=== PATIENT | female | born 1935 | race Asian ===

== ENCOUNTER 2016-02-16 15:44 | Observation (INO) | payer MEDICARE, OTHER ==
[~2016-02-16] VITALS: Ht 152.4 cm; Wt 39.0 kg
[2016-02-16] MEDS ORDERED: NAMENDA10 MG ORAL (16:16)
[2016-02-16] MEDS ORDERED: MELOXICAM15 MG PO (16:16)
[2016-02-16] MEDS ORDERED: RAMIPRIL5 MG ORAL (16:16)
[2016-02-16] MEDS ORDERED: METFORMIN HCL500 M1 ORAL (16:16)
[2016-02-16] MEDS ORDERED: ZOCOR20 M1 ORAL (16:18)
[2016-02-16] MEDS ORDERED: ASPIRIN81 MG ORAL (16:18)
[2016-02-16] MEDS ORDERED: OYSTER SHELL C500 MG PO (16:18)
[2016-02-16] MEDS ORDERED: CLOPIDOGREL75 MG ORAL (16:18)
[2016-02-16] MEDS ORDERED: DONEPEZIL HCL10 MG ORAL (16:18)
[2016-02-16 16:23] VITALS: BP 136/60
[2016-02-16 16:27] LABS: BASOPHILS % (AUTO) 0.9 % (0.0-2.0); LYMPHOCYTES % (AUTO) 23.3 % (20.0-45.0); MEAN CORPUSCULAR HGB CONC 32.6 G/DL (32.0-36.0); MEAN CORPUSCULAR VOLUME 95 FL (80-99); MEAN PLATELET VOLUME 7.5 FL (6.5-10.1); MONOCYTES % (AUTO) 5.9 % (1.0-10.0); NEUTROPHILS % (AUTO) 67.9 % (45.0-75.0); PLATELET COUNT 125 K/UL (150-450); RED BLOOD COUNT 3.93 M/UL (4.20-5.40); RED CELL DISTRIBUTION WIDTH 12.9 % (11.6-14.8)
[2016-02-16 16:33] LABS: PROTHROMBIN TIME 10.3 SEC (9.30-11.50)
[2016-02-16 16:42] LABS: ALANINE AMINOTRANSFERASE 7 U/L (3-33); ALBUMIN/GLOBULIN RATIO 1.3 (1.0-2.7); ANION GAP 13 (5-15); ASPARTATE AMINO TRANSFERASE 20 U/L (5-40); CALCIUM 9.9 mg/dL (8.6-10.2); CARBON DIOXIDE 26 mEQ/L (20-30); CHLORIDE 105 mEQ/L (98-107); CREATININE 0.9 mg/dL (0.5-0.9); HEMOLYSIS 22; SODIUM 144 mEQ/L (135-145); TOTAL PROTEIN 6.8 g/dL (6.6-8.7)
[2016-02-16 16:57] LABS: TROPONIN I < 0.30 ng/mL (<=0.30)
[2016-02-16 17:12] LABS: LIPASE 77 U/L (< 60)
--- NOTE | 2016-02-16 17:16 | Diagnostic Imaging Report ---
Indications: S. pain Technique: Portable AP chest Findings: Comparison: None Mild lung volume asymmetry, right greater than left. Small curvilinear metallic densities overlying both upper hemithoraces. Aortic arch calcified and elongated. Multiple old, healed bilateral rib fractures. Cephalad subluxation of the right humerus narrowing the subacromial space. Remainder of cardio mediastinal silhouette, pulmonary vasculature and parenchyma, and pleural surfaces are unremarkable IMPRESSION: No evidence of acute cardiopulmonary disease Aortosclerosis and probable chronic hypertensive change Bilateral old, healed rib fractures Chronic insufficiency right rotator cuff Bilateral chest wall acupuncture needle tips
[2016-02-16 17:22] LABS: CKMB < 1.5 ng/mL (< 3.8)
--- NOTE | 2016-02-16 19:16 | Emergency Room Report ---
History of Present Illness General Chief Complaint: Gastrointestinal Bleed Source: Patient, EMS Present Illness HPI 80-year-old female presents ED for blood in the stool. Patient resides in convalescent home. Unit Manager observed dark tarry stools today. Upon arrival patient showing no signs of distress. Patient denies any abdominal pain, nausea or vomiting. Denies chest pain or shortness of breath. Denies fevers chills. patient take aspirin and Plavix. No aggravating relieving factors. Denies any other associated symptoms Allergies: Coded Allergies: No Known Allergies (Unverified , 02/16/16) Patient History Past Medical History: DM, HTN Past Surgical History: none Pertinent Family History: none Social History: Denies: alcohol use, drug use, smoking Now: No Immunizations: UTD Reviewed Nursing Documentation: PMH: Agreed, PSxH: Agreed Nursing Documentation-PMH Hx Hypertension: Yes Hx Diabetes: Yes Physical Exam Vital Signs Date Time Temp Pulse Resp B/P Pulse Ox O2 Delivery O2 Flow Rate FiO2 02/16/16 15:44 98.1 74 18 136/60 96 Room Air Medical Decision Making Diagnostic Impression: Primary Impression: Gastrointestinal hemorrhage Last Vital Signs Date Time Temp Pulse Resp B/P Pulse Ox O2 Delivery O2 Flow Rate FiO2 02/16/16 18:46 69 13 137/49 97 Room Air 02/16/16 16:23 98.1 Disposition: SNF Condition: Stable Referrals: NON PHYSICIAN (PCP) LUCINA BETTS M.D. Feb 16, 2016 19:16
--- NOTE | 2016-02-16 19:18 | Emergency Room Report ---
History of Present Illness General Chief Complaint: Gastrointestinal Bleed Source: Patient, EMS Present Illness Allergies: Coded Allergies: No Known Allergies (Unverified , 02/16/16) Patient History Now: No Nursing Documentation-PMH Hx Hypertension: Yes Hx Diabetes: Yes Review of Systems All Other Systems: negative except mentioned in HPI Physical Exam Vital Signs Date Time Temp Pulse Resp B/P Pulse Ox O2 Delivery O2 Flow Rate FiO2 02/16/16 15:44 98.1 74 18 136/60 96 Room Air Sp02 EP Interpretation: reviewed, normal General Appearance: no apparent distress, alert, GCS 15, non-toxic Head: normocephalic, atraumatic Eyes: bilateral eye PERRL, bilateral eye normal inspection ENT: hearing grossly normal, normal pharynx, no angioedema, normal voice Neck: full range of motion, supple/symm/no masses Respiratory: chest non-tender, lungs clear, normal breath sounds, speaking full sentences Cardiovascular #1: regular rate, rhythm, no edema Cardiovascular #2: 2+ carotid (R), 2+ carotid (L), 2+ radial (R), 2+ radial (L) , 2+ dorsalis pedis (R), 2+ dorsalis pedis (L) Gastrointestinal: normal bowel sounds, non tender, soft, non-distended, no guarding, no rebound Rectal: black stool Genitourinary: normal inspection, no CVA tenderness Musculoskeletal: back normal, gait/station normal, normal range of motion, non- tender Neurologic: alert, oriented x3, responsive, motor strength/tone normal, sensory intact, speech normal Psychiatric: judgement/insight normal, memory normal, mood/affect normal, no suicidal/homicidal ideation Reflexes: 3+ bicep (R), 3+ bicep (L), 3+ tricep (R), 3+ tricep (L), 3+ knee (R) , 3+ knee (L) Skin: normal color, no rash, warm/dry, well hydrated Lymphatic: no adenopathy Medical Decision Making Diagnostic Impression: Primary Impression: Lower GI bleed ER Course Hospital Course 80-year-old F presents to ED with black tarry stools. On Plavix and aspirin Differential diagnoses include: UGIB, LGIB, hemorrhoids Clinical course Patient placed on stretcher. nurse monitoring. After initial history and physical I ordered labs, IV fluids, UA Labs - no leukocytosis, Hb/Hct stable. electrolytes ok. UA unremarkable Case discussed with Dr. Mendes and he agreed to accept the patient to his service for further care and support I feel this is a highly complex case requiring extensive working including EKG/ Rhythm strip, Xray/CT/US, Blood/urine lab work, repeat exams while in ED, and administration of strong opiates/narcotics for pain control, admission to hospital or close patient follow up. Diagnosis - LGIB Patient admitted to floor in serious condition Labs Test 02/16/16 16:10 White Blood Count 8.0 K/UL (4.8-10.8) Red Blood Count 3.93 M/UL (4.20-5.40) Hemoglobin 12.2 G/DL (12.0-16.0) Hematocrit 37.3 % (37.0-47.0) Mean Corpuscular Volume 95 FL (80-99) Mean Corpuscular Hemoglobin 31.0 PG (27.0-31.0) Mean Corpuscular Hemoglobin Concent 32.6 G/DL (32.0-36.0) Red Cell Distribution Width 12.9 % (11.6-14.8) Platelet Count 125 K/UL (150-450) Mean Platelet Volume 7.5 FL (6.5-10.1) Neutrophils (%) (Auto) 67.9 % (45.0-75.0) Lymphocytes (%) (Auto) 23.3 % (20.0-45.0) Monocytes (%) (Auto) 5.9 % (1.0-10.0) Eosinophils (%) (Auto) 2.0 % (0.0-3.0) Basophils (%) (Auto) 0.9 % (0.0-2.0) Prothrombin Time 10.3 SEC (9.30-11.50) Prothromb Time International Ratio 1.0 (0.9-1.1) Activated Partial Thromboplast Time 25 SEC (23-33) Sodium Level 144 mEQ/L (135-145) Potassium Level 4.0 mEQ/L (3.4-4.9) Chloride Level 105 mEQ/L (98-107) Carbon Dioxide Level 26 mEQ/L (20-30) Anion Gap 13 (5-15) Blood Urea Nitrogen 23 mg/dL (7-23) Creatinine 0.9 mg/dL (0.5-0.9) Estimat Glomerular Filtration Rate mL/min (>60) Glucose Level 122 mg/dL (74-106) Calcium Level 9.9 mg/dL (8.6-10.2) Total Bilirubin 0.3 mg/dL (0.0-1.2) Aspartate Amino Transf (AST/SGOT) 20 U/L (5-40) Alanine Aminotransferase (ALT/SGPT) 7 U/L (3-33) Alkaline Phosphatase 38 U/L (35-104) Creatine Kinase MB < 1.5 ng/mL (< 3.8) Troponin I < 0.30 ng/mL (<=0.30) Total Protein 6.8 g/dL (6.6-8.7) Albumin 3.9 g/dL (3.5-5.2) Globulin 2.9 g/dL Albumin/Globulin Ratio 1.3 (1.0-2.7) Lipase 77 U/L (< 60) EKG Diagnostic Results Rate: normal Rhythm: NSR ST Segments: no acute changes ASA given to the pt in ED: No Rhythm Strip Diag. Results EP Interpretation: yes Rhythm: NSR, no PVC's, no ectopy Last Vital Signs Date Time Temp Pulse Resp B/P Pulse Ox O2 Delivery O2 Flow Rate FiO2 02/16/16 18:46 69 13 137/49 97 Room Air 02/16/16 16:23 98.1 Status: improved Disposition: ADMITTED INPATIENT Condition: Serious Referrals: NON PHYSICIAN (PCP) LUCINA BETTS M.D. Feb 16, 2016 19:18
[2016-02-16 20:00] VITALS: BP 151/63
[2016-02-16] MEDS ORDERED: Donepezil 10mg tab ORAL SCH (22:00)
--- NOTE | 2016-02-16 23:28 | General Progress Note ---
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 - check stool OB - Son expressed interest in GI w/u if OB (+) Subjective Allergies: Coded Allergies: No Known Allergies (Unverified , 02/16/16) Objective Last 24 Hour Vital Signs Date Time Temp Pulse Resp B/P Pulse Ox O2 Delivery O2 Flow Rate FiO2 02/16/16 20:00 97.2 66 19 151/63 95 Room Air 02/16/16 18:46 69 13 137/49 97 Room Air 02/16/16 16:23 98.1 80 18 136/60 96 Room Air 02/16/16 15:44 98.1 74 18 136/60 96 Room Air Laboratory Tests 02/16/16 16:10: White Blood Count 8.0, Red Blood Count 3.93L, Hemoglobin 12.2, Hematocrit 37.3, Mean Corpuscular Volume 95, Mean Corpuscular Hemoglobin 31.0, Mean Corpuscular Hemoglobin Concent 32.6, Red Cell Distribution Width 12.9, Platelet Count 125L, Mean Platelet Volume 7.5, Neutrophils (%) (Auto) 67.9, Lymphocytes (%) (Auto) 23.3, Monocytes (%) (Auto) 5.9, Eosinophils (%) (Auto) 2.0, Basophils (%) (Auto ) 0.9, Prothrombin Time 10.3, Prothromb Time International Ratio 1.0, Activated Partial Thromboplast Time 25, Sodium Level 144, Potassium Level 4.0, Chloride Level 105, Carbon Dioxide Level 26, Anion Gap 13, Blood Urea Nitrogen 23, Creatinine 0.9, Estimat Glomerular Filtration Rate , Glucose Level 122H, Calcium Level 9.9, Total Bilirubin 0.3, Aspartate Amino Transf (AST/SGOT) 20, Alanine Aminotransferase (ALT/SGPT) 7, Alkaline Phosphatase 38, Creatine Kinase MB < 1.5, Troponin I < 0.30, Total Protein 6.8, Albumin 3.9, Globulin 2.9, Albumin/Globulin Ratio 1.3, Lipase 77H 02/16/16 21:30: Stool Occult Blood [Pending] Height (Feet): 5 Height (Inches): 10.00 Weight (Pounds): 86 PERLA HERNANDEZ Feb 16, 2016 23:28
[2016-02-16] MEDS ORDERED: Sorbitol Solution UD 30ml ORAL ONE (23:30)
[2016-02-16 23:51] VITALS: BP 146/64
[2016-02-17] MEDS ORDERED: 1/2NS w/KCl 20mEq 1000ml 1,000 ML IV SCH
[2016-02-17] MEDS ORDERED: Sorbitol Solution UD 30ml ORAL ONE (02:30)
[2016-02-17 04:00] VITALS: BP 142/58
[2016-02-17 06:43] LABS: BASOPHILS % (AUTO) 1.1 % (0.0-2.0); EOSINOPHILS % (AUTO) 2.9 % (0.0-3.0); LYMPHOCYTES % (AUTO) 27.2 % (20.0-45.0); MEAN CORPUSCULAR HEMOGLOBIN 30.4 PG (27.0-31.0); MEAN CORPUSCULAR HGB CONC 32.2 G/DL (32.0-36.0); MEAN CORPUSCULAR VOLUME 94 FL (80-99); MEAN PLATELET VOLUME 7.7 FL (6.5-10.1); MONOCYTES % (AUTO) 7.9 % (1.0-10.0); NEUTROPHILS % (AUTO) 60.9 % (45.0-75.0); PLATELET COUNT 123 K/UL (150-450); RED BLOOD COUNT 4.29 M/UL (4.20-5.40); RED CELL DISTRIBUTION WIDTH 12.6 % (11.6-14.8); WHITE BLOOD COUNT 7.1 K/UL (4.8-10.8)
[2016-02-17 06:53] LABS: ALANINE AMINOTRANSFERASE 7 U/L (3-33); ALBUMIN/GLOBULIN RATIO 1.4 (1.0-2.7); ANION GAP 14 (5-15); ASPARTATE AMINO TRANSFERASE 23 U/L (5-40); CALCIUM 9.5 mg/dL (8.6-10.2); CARBON DIOXIDE 25 mEQ/L (20-30); CHLORIDE 108 mEQ/L (98-107); CREATININE 0.7 mg/dL (0.5-0.9); HEMOLYSIS 4; POTASSIUM 3.6 mEQ/L (3.4-4.9); SODIUM 147 mEQ/L (135-145); TOTAL PROTEIN 7.1 g/dL (6.6-8.7)
[2016-02-17 08:00] VITALS: BP 140/85
[2016-02-17] MEDS ORDERED: Memantine 10mg tab ORAL SCH (09:00)
[2016-02-17] MEDS ORDERED: Ramipril 5mg cap ORAL SCH (09:00)
[2016-02-17 12:00] VITALS: BP 158/74
--- NOTE | 2016-02-17 15:37 | Consultation ---
DATE OF CONSULTATION: 02/16/2016 NOTE: VERY POOR AUDIO QUALITY. GASTROLOGY CONSULTATION: CHIEF COMPLAINT: I was asked to see this patient by Dr. Favian Mendes for evaluation of gastrointestinal bleeding. HISTORY OF PRESENT ILLNESS: The patient is a debilitated 80-year-old woman with history of advanced dementia and was brought in from the halfway due to gastrointestinal bleeding. According to the emergency room, the patient was noted to have some black tarry stools and she is on aspirin and Plavix. However, the nurses on the floor states that she just had a small smear of red blood. The patient has had no vomiting and no prior history of gastrointestinal bleeding. I spoke with the patient's son, who stated that the patient has had no gastrointestinal history and has not had endoscopy or colonoscopy in the past. The patient lives a halfway due to her declining cognitive function. PAST MEDICAL HISTORY: Remarkable for organic brain syndrome and mild diabetes. FAMILY HISTORY: Noncontributory. SOCIAL HISTORY: The patient does not have any history of smoking or drinking. She resides in a halfway due to dementia. Her son looks after her. PHYSICAL EXAMINATION: GENERAL: This is an 80-year-old woman, seen in her room. HEENT: Normocephalic and atraumatic. Sclerae anicteric. Oropharynx clear. NECK: Supple. CHEST: Revealed clear breath sounds. CARDIAC: Revealed regular rate and rhythm. ABDOMEN: Soft and flat. Good bowel sounds. There is no organomegaly. The patient appeared to have spontaneous palpation, but this was not reproducible. EXTREMITIES: Reveal no edema. RECTAL: Revealed hard brown stool with fecal loading in the rectum. The stool is brown. There is no apparent melena. LABORATORY DATA: . ASSESSMENT: This patient has had rectal bleeding, which per nursing staff appeared to be small red blood. This will be consistent with the patient's constipation and stool small bright red blood may be hemorrhoidal or anorectal in nature. . Per my discussion with the son, he appears to be interested in gastrointestinal workup. If the stool does show evidence of heme-positive testing on Hemoccult intervention workup. The patient will need a rectal stool . She is requesting a long-term management to prevent this recurrence. RECOMMENDATIONS: Per above discussion and per orders written in the chart. Thank you for asking to participate in the care of this patient. Kenan Wilson M.D. DR: MARLYN JOB#: [id number] CC:
--- NOTE | 2016-02-17 21:08 | General Progress Note ---
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 - check stool OB --> negative - d/c planning Subjective Allergies: Coded Allergies: No Known Allergies (Unverified , 02/16/16) Subjective awake / Calm tolerating PO (+) BM Objective Last 24 Hour Vital Signs Date Time Temp Pulse Resp B/P Pulse Ox O2 Delivery O2 Flow Rate FiO2 02/17/16 12:00 97.0 68 20 158/74 98 Room Air 02/17/16 10:33 143/74 02/17/16 08:00 96.8 90 18 140/85 98 Room Air 02/17/16 04:00 96.8 73 18 142/58 96 Room Air 02/16/16 23:51 97.8 69 18 146/64 97 Room Air Intake and Output 02/16/16 02/17/16 19:00 07:00 Intake Total 0 ml 300 ml Output Total 1 ml Balance 0 ml 299 ml Intake Oral 0 ml IV Total 275 ml Other 25 ml Output Urine Total 1 ml # Voids 2 # Bowel Movements 1 Laboratory Tests 02/16/16 21:30: Stool Occult Blood Negative 02/17/16 05:10: White Blood Count 7.1, Red Blood Count 4.29, Hemoglobin 13.0, Hematocrit 40.4, Mean Corpuscular Volume 94, Mean Corpuscular Hemoglobin 30.4, Mean Corpuscular Hemoglobin Concent 32.2, Red Cell Distribution Width 12.6, Platelet Count 123L, Mean Platelet Volume 7.7, Neutrophils (%) (Auto) 60.9, Lymphocytes (%) (Auto) 27.2, Monocytes (%) (Auto) 7.9, Eosinophils (%) (Auto) 2.9, Basophils (%) (Auto ) 1.1, Sodium Level 147H, Potassium Level 3.6, Chloride Level 108H, Carbon Dioxide Level 25, Anion Gap 14, Blood Urea Nitrogen 17, Creatinine 0.7, Estimat Glomerular Filtration Rate , Glucose Level 106, Calcium Level 9.5, Total Bilirubin 0.5, Aspartate Amino Transf (AST/SGOT) 23, Alanine Aminotransferase ( ALT/SGPT) 7, Alkaline Phosphatase 42, Total Protein 7.1, Albumin 4.2, Globulin 2.9, Albumin/Globulin Ratio 1.4 Height (Feet): 5 Height (Inches): 10.00 Weight (Pounds): 86 Objective WDWN NCAT supple CTA RRR soft ND NT no edema PERLA HERNANDEZ Feb 17, 2016 21:08
--- NOTE | 2016-02-17 22:07 | History and Physical Report ---
DATE OF ADMISSION: 02/16/2016 CHIEF COMPLAINT/REASON FOR HOSPITALIZATION: The patient admitted with rectal bleed. HISTORY OF PRESENT ILLNESS: The patient is an 80-year-old [place] lady who lives in a nursing home facility. Rectal bleeding was noted and she was sent to the hospital. She denies nausea, vomiting, or abdominal pain. The patient has mild dementia. History is taken from the son and there is only scant records. She also has apparently a history of diabetes and osteoarthritis. PAST SURGICAL HISTORY: None. MEDICATIONS: At the facility include metformin, meloxicam, ramipril, Namenda, oyster shell calcium, Aricept, simvastatin, Plavix, and aspirin. HABITS: She is a nondrinker and nonsmoker. No use of illicit drugs. SYSTEM REVIEW: HEAD EYES, EARS, NOSE, AND THROAT: Vision and hearing are good according to the family. ENDOCRINE: No known diabetes or thyroid disease. PULMONARY: No asthma or TB. CARDIAC: No angina or NV. The family does not know why the patient is on aspirin and Plavix. GI: No prior history of gastrointestinal bleeding or ulcers or colonic problems. GENITOURINARY: No dysuria or hematuria. NEUROLOGIC: History of cognitive impairment and memory problems, but no definite focal stroke. MUSCULOSKELETAL: History of some arthritis. Apparently, she has had some minor falls. PHYSICAL EXAMINATION: GENERAL: The patient is alert, elderly lady, in no acute distress. VITAL SIGNS: Temperature 96.8, pulse 90, respirations 18, blood pressure 140/85, and pulse ox 98%. HEAD, EYES, EARS, NOSE, THROAT: Sclerae are nonicteric. Ocular motions intact in all directions. Oral mucosa moist. NECK: No adenopathy or thyroid enlargement. LUNGS: Clear. HEART: Regular rhythm. No murmur. ABDOMEN: Soft without organomegaly or masses. No tenderness. RECTAL: There is light brown stool coming out of the rectum. Earlier rectal exam showed a firm impaction per Dr. Wilson. EXTREMITIES: No edema, cyanosis, or clubbing. There are few ecchymoses on the legs. NEUROLOGIC: She is alert and responsive. Ocular motions intact in all directions. Smile symmetric. Tongue is midline. She moves all extremities. LABORATORY DATA: Review of pertinent labs showed normal electrolytes, glucose 122. On admission, hemoglobin 12.2, hematocrit 37.3. Repeat on 02/17/2016, hemoglobin 13 and hematocrit 40.4. IMPRESSION: 1. Rectal bleeding, likely secondary to hemorrhoids and hard stool. 2. Stable hemoglobin. 3. History of taking aspirin and Plavix. 4. History of dementia. 5. History of osteoarthritis, on nonsteroidal anti-inflammatory agents. PLAN: The patient is clinically stable and will be returned to her facility, discussed with the family. Favian Mendes M.D. DR: BISI JOB#: [id number] CC:
--- NOTE | 2016-02-18 05:28 | Discharge Summary ---
DATE OF ADMISSION: 02/16/2016 DATE OF DISCHARGE: 02/17/2016 PERTINENT HISTORY: The patient is an 80-year-old lady came with blood per rectum. She was examined by Dr. Wilson, who found firm stool and likely hemorrhoidal bleed. Her CBCs serially were stable with no evidence of recurrent bleeding. She had no abdominal pain. Exam was negative and she was returned to the facility in stable condition. FINAL DIAGNOSES: 1. Rectal bleeding likely secondary to hemorrhoids. 2. History of diabetes. 3. History of osteoarthritis. 4. History of cognitive impairment and dementia. DISCHARGE DISPOSITION: Back to her facility on a regular diet and medications same as prior to admission. She will be followed up by her regular primary care physician. Favian Mendes M.D. DR: YAJAIRA JOB#: [id number] CC:
--- NOTE | 2016-02-19 14:57 | Cardiology Report ---
APPROVED REPORT EKG Measurement Heart [id number] Normal sinus rhythm Minimal voltage criteria for LVH, may be normal variant Borderline ECG
== END 2016-02-17 14:30 ==
LOC: ENRESERVDT → ENRESERVTM → EDBD 15:44 → EMR 17:00 → INTOOBSV 17:04 → 4W 17:04 → EDBEDREQ 18:25
DX: K62.5 Hemorrhage of anus and rectum (principal); K64.9 Unspecified hemorrhoids; K59.00 Constipation, unspecified; D69.6 Thrombocytopenia, unspecified; E11.9 Type 2 diabetes mellitus without complications; Z79.84 Long term (current) use of oral hypoglycemic drugs; I10 Essential (primary) hypertension; M19.90 Unspecified osteoarthritis, unspecified site; F03.90 Unspecified dementia, unspecified severity, without behavioral disturbance, psychotic disturbance, mood disturbance, and anxiety; Z79.82 Long term (current) use of aspirin; Z79.1 Long term (current) use of non-steroidal anti-inflammatories (NSAID); Z79.02 Long term (current) use of antithrombotics/antiplatelets
CPT/HCPCS: 36415 ×2; 71010; 80053 ×2; 82270; 82553; 82962; 83690; 84484; 85025 ×2; 85610; 85730; 86850; 86900; 86901; 87081 ×2; 93005; 99285; G0378 ×2